=== PATIENT | female | born 1960 | race Caucasian/White ===

== ENCOUNTER 2017-03-22 17:07 | Emergency (ER) | payer BC, OTHER ==
[2017-03-22 18:21] LABS: #Basophils 0.1 thou/uL (0.0-0.2); #Eosinphils 0.2 thou/uL (0.0-0.7); #Lymphocytes 3.1 thou/uL (1.20-3.40); #Monocytes 0.7 thou/uL (0.11-0.59); #Neutrophils 7.2 thou/uL (1.40-6.50); %Eosinophils 1.4 % (0.0-10.0); %Lymphocytes 27.5 % (21.0-51.0); %Monocytes 5.8 % (0.0-10.0); Hematocrit 47.1 % (36.0-47.0); Mean Platelet Volume 6.9 fL (7.4-10.4); Red Blood Cell (RBC) Count 4.85 mill/uL (4.20-5.40); White Blood Cell (WBC) Count 11.1 thou/uL (4.8-10.8)
[2017-03-22 18:43] LABS: Acetaminophen Less than 6.0 mcg/mL (10.0-30.0); Salicylate Less than 8.0 mg/dL (15.0-30.0)
[2017-03-22 18:44] LABS: ALT (SGPT) 20 U/L (8-55); AST (SGOT) 16 U/L (5-34); Alkaline Phosphatase 101 U/L (40-150); Anion Gap 14 mmol/L (10-20); BUN (Urea Nitrogen) 22 mg/dL (9.8-20.1); Bilirubin, Total 0.7 mg/dL (0.2-1.2); CK (CPK) 34 U/L (29-168); Calc. Creatinine Clearance 0 mL/min (70-130); Calcium 9.5 mg/dL (7.8-10.44); Carbon Dioxide 23 mmol/L (22-29); Chloride 103 mmol/L (98-107); Estimated GFR-MDRD 54; Globulin 3.1 g/dL (2.4-3.5); Protein, Total 7.3 g/dL (6.0-8.3)
[2017-03-22 19:01] LABS: Bilirubin Small (Negative); Blood, Urine Negative (Negative); Glucose, Urine (Dipstick) Negative (Negative); Ketone, Urine Negative (Negative); Nitrite Negative (Negative); Protein, Urine (Dipstick) Trace mg/dL (Neg-Trace)
[2017-03-22 19:04] LABS: Bacteria/HPF None Seen HPF (None Seen); Hyaline Casts/LPF 4-6 HYALINE CAST LPF (0-3 Hyaline); RBC/HPF 0-3 HPF (0-3); WBC/HPF 0-3 HPF (0-3)
[2017-03-22 19:10] LABS: Amphetamine Not Detected (NotDetected); Methadone Not Detected (NotDetected); Methamphetamine Not Detected (NotDetected)
[2017-03-23] MEDS ORDERED: Ibuprofen 200 MG TAB ONE ×2 (00:45→07:33)
== END 2017-03-23 08:52 ==
LOC: ERS 17:07
DX: F32.9 Major depressive disorder, single episode, unspecified (principal); I10 Essential (primary) hypertension; E11.9 Type 2 diabetes mellitus without complications; E78.5 Hyperlipidemia, unspecified; F17.210 Nicotine dependence, cigarettes, uncomplicated; Z79.899 Other long term (current) drug therapy
CPT/HCPCS: 36415; 80053; 80306; 80307; 81003; 81015; 82550; 84443; 85025; 96360; 96361; 99406

== ENCOUNTER 2018-06-01 20:59 | Emergency (ER) | payer BC, OTHER ==
[~2018-06-01 20:59] MED LIST: ISOVUE-370 76%-LOCM 1 ML ONE
[2018-06-01] MEDS ORDERED: Ondansetron PF 4 MG/2 ML Vial ONE (21:53)
[2018-06-01] MEDS ORDERED: Fentanyl 100 MCG/2 ML VIAL ONE (21:53)
[2018-06-01 22:09] LABS: #Basophils 0.1 thou/uL (0.0-0.2); #Eosinphils 0.2 thou/uL (0.0-0.7); #Lymphocytes 2.8 thou/uL (1.20-3.40); #Monocytes 0.6 thou/uL (0.11-0.59); #Neutrophils 7.9 thou/uL (1.40-6.50); %Eosinophils 1.9 % (0.0-10.0); %Lymphocytes 23.7 % (21.0-51.0); %Monocytes 5.4 % (0.0-10.0); Hemoglobin 14.8 g/dL (12.0-16.0); Mean Corpuscular HGB CONC 31.4 g/dL (32.0-36.0); Mean Corpuscular Hemoglobin 30.8 pg (27.0-31.0); Mean Corpuscular Volume 97.9 fL (78.0-98.0); Mean Platelet Volume 7.4 fL (7.4-10.4); Platelet Count 280 thou/uL (130-400); RBC Distribution Width 12.2 % (11.5-14.5); White Blood Cell (WBC) Count 11.6 thou/uL (4.8-10.8)
[2018-06-01 22:51] LABS: ALT (SGPT) 21 U/L (8-55); AST (SGOT) 29 U/L (5-34); Albumin 4.3 g/dL (3.5-5.0); Alkaline Phosphatase 104 U/L (40-150); Anion Gap 15 mmol/L (10-20); BUN (Urea Nitrogen) 16 mg/dL (9.8-20.1); Bilirubin, Total 0.4 mg/dL (0.2-1.2); Calc. Creatinine Clearance 0 mL/min (70-130); Calcium 9.9 mg/dL (7.8-10.44); Carbon Dioxide 28 mmol/L (22-29); Chloride 101 mmol/L (98-107); Estimated GFR-MDRD 57; Globulin 3.6 g/dL (2.4-3.5); Glucose 149 mg/dL (70-105); Lipase 19 U/L (8-78); Potassium 4.8 mmol/L (3.5-5.1); Protein, Total 7.9 g/dL (6.0-8.3); Sodium 139 mmol/L (136-145)
[2018-06-01 22:59] LABS: Bilirubin Small (Negative); Blood, Urine Negative (Negative); Clarity CLOUDY (Clear); Glucose, Urine (Dipstick) Negative (Negative); Leukocyte Negative (Negative); Nitrite Negative (Negative); Protein, Urine (Dipstick) 30 mg/dL (Neg-Trace); Specific Gravity, Urine 1.036 (1.002-1.036); pH, Urine 5.5 (5.0-9.0)
[2018-06-01 23:00] LABS: Bacteria/HPF 1+ HPF (None Seen); Pathc Cast-AUWi Flag 1.45 (0-2.49)
[2018-06-01 23:11] LABS: Crystals/HPF 4+ CA OXALATE HPF (Negative); Hyaline Casts/LPF 0-3 HYALINE CAST LPF (0-3 Hyaline)
--- NOTE | 2018-06-01 23:30 | CT ---
CONTRAST ENHANCED CT IMAGES ABDOMEN AND PELVIS 06/01/18 HISTORY: Abdominal pain. Comparison made to previous CT from 05/19/16. The lung bases are unremarkable. Three intraperitoneal fluid seen on the patient's previous CT has resolved. No evidence of free intra peritoneal air or fluid seen at this time. The liver and spleen are unremarkable. The gallbladder has been surgically removed. The pancreas is unremarkable. Adrenal glands and kidneys are unremarkable. Small cortical cyst seen i n the lower pole of the left kidney. No evidence of periaortic lymphadenopathy seen. A normal appendix is visualized. The proximal colon is unremarkable. The descending colon and sigmoid colon contains areas of surrounding pericolonic edema concerning for possible diverticulitis or colitis. Numerous sigmoid colonic diverticula are also present. No defini te evidence of abscess seen. IMPRESSION: Descending and sigmoid colonic diverticulosis and surrounding inflammatory change concerning for dive rticulitis. POS: [facility]
[2018-06-02] MEDS ORDERED: metroNIDAZOLE 250 MG TAB ONE (00:11)
== END 2018-06-02 00:30 | disposition home or self-care (01) ==
LOC: ERS 20:59
DX: K57.32 Diverticulitis of large intestine without perforation or abscess without bleeding (principal); E78.5 Hyperlipidemia, unspecified; I25.2 Old myocardial infarction; E11.9 Type 2 diabetes mellitus without complications; F32.9 Major depressive disorder, single episode, unspecified; F17.210 Nicotine dependence, cigarettes, uncomplicated; Z79.899 Other long term (current) drug therapy
CPT/HCPCS: 74177; 80053; 81003; 81015; 82010; 83690; 85025; 87086; 96361; 96372; 96374; 96375; J0500; J2405; J3010; Q9966

== ENCOUNTER 2018-06-08 14:54 | Emergency (ER) | payer OTHER ==
[~2018-06-08 14:54] MED LIST changes: +Iopamidol 370 76% 50 ML VIAL FS ONE
[2018-06-08 17:23] LABS: Bilirubin Small (Negative); Blood, Urine Negative (Negative); Clarity CLOUDY (Clear); Glucose, Urine (Dipstick) Negative (Negative); Leukocyte Trace (Negative); Nitrite Negative (Negative); Protein, Urine (Dipstick) Trace mg/dL (Neg-Trace); Specific Gravity, Urine 1.028 (1.002-1.036); Urobilinogen 0.2 mg/dL (0.2-1.0); pH, Urine 5.5 (5.0-9.0)
[2018-06-08 17:24] LABS: ALT (SGPT) 35 U/L (8-55); AST (SGOT) 33 U/L (5-34); Albumin 4.3 g/dL (3.5-5.0); Alkaline Phosphatase 106 U/L (40-150); Anion Gap 14 mmol/L (10-20); BUN (Urea Nitrogen) 17 mg/dL (9.8-20.1); Bilirubin, Total 0.5 mg/dL (0.2-1.2); Calc. Creatinine Clearance 0 mL/min (70-130); Calcium 9.8 mg/dL (7.8-10.44); Carbon Dioxide 26 mmol/L (22-29); Chloride 101 mmol/L (98-107); Estimated GFR-MDRD 56; Glucose 147 mg/dL (70-105); Lipase 16 U/L (8-78); Potassium 4.1 mmol/L (3.5-5.1); Protein, Total 7.3 g/dL (6.0-8.3); Sodium 137 mmol/L (136-145)
[2018-06-08 17:26] LABS: Bacteria/HPF None Seen HPF (None Seen)
[2018-06-08 17:29] LABS: Manual Microscopic Reviewed? No Path Casts Seen; Pathc Cast-AUWi Flag 3.63 (0-2.49)
[2018-06-08 17:45] LABS: Hyaline Casts/LPF 0-3 HYALINE CAST LPF (0-3 Hyaline)
[2018-06-08 18:02] LABS: #Basophils 0.1 thou/uL (0.0-0.2); #Eosinphils 0.1 thou/uL (0.0-0.7); #Lymphocytes 2.7 thou/uL (1.20-3.40); #Monocytes 0.6 thou/uL (0.11-0.59); %Basophils 0.8 % (0.0-1.0); %Eosinophils 0.8 % (0.0-10.0); %Lymphocytes 23.2 % (21.0-51.0); %Monocytes 5.4 % (0.0-10.0); %Neutrophils 69.7 % (42.0-75.0); Hemoglobin 14.7 g/dL (12.0-16.0); Mean Corpuscular HGB CONC 33.2 g/dL (32.0-36.0); Mean Corpuscular Hemoglobin 32.4 pg (27.0-31.0); Mean Corpuscular Volume 97.4 fL (78.0-98.0); Mean Platelet Volume 6.9 fL (7.4-10.4); Platelet Count 254 thou/uL (130-400); RBC Distribution Width 12.2 % (11.5-14.5); Red Blood Cell (RBC) Count 4.55 mill/uL (4.20-5.40); White Blood Cell (WBC) Count 11.5 thou/uL (4.8-10.8)
[2018-06-08] MEDS ORDERED: Morphine 4 MG/ML VIAL ONE (18:02)
[2018-06-08] MEDS ORDERED: Ondansetron PF 4 MG/2 ML Vial ONE (18:02)
--- NOTE | 2018-06-08 20:25 | CT ---
CT ABDOMEN AND PELVIS WITH INTRAVENOUS CONTRAST: HISTORY: Abdominal pain. Bodyaches. History of diverticulitis. COMPARISON: 06/01/2018 FINDINGS: ABDOMEN: The lung bases show linear atelectasis or scar. The liver shows suggestion of some fatty change. The spleen is within normal limits in size. The pa ncreas is normal in appearance. The gallbladder has been removed. There is extrahepatic ductal prom inence, which is probably on the basis of the cholecystectomy. The right and left adrenal glands and the right and left kidneys are normal in size. No renal calcul i. No significant periaortic or mesenteric lymphadenopathy. PELVIS: There is some diverticulosis of the descending and sigmoid colon. The pericolonic inflammat ory change has improved. No abscess. There is a focus which appears to represent some fat necrosis incidentally seen in the deep left pelvis. Appendix is normal. IMPRESSION: Improving sigmoid diverticulitis. POS: [facility]
== END 2018-06-08 20:46 | disposition home or self-care (01) ==
LOC: ERS 14:54
DX: B34.9 Viral infection, unspecified (principal); I10 Essential (primary) hypertension; E78.5 Hyperlipidemia, unspecified; I25.2 Old myocardial infarction; E11.9 Type 2 diabetes mellitus without complications; F32.9 Major depressive disorder, single episode, unspecified; Z87.891 Personal history of nicotine dependence
CPT/HCPCS: 36415; 74177; 80053; 81003; 81015; 83690; 85025; 87040; 87804; 96374; 96375; J2270; J2405; Q9966; Q9967

== ENCOUNTER 2018-06-26 09:47 | Outpatient (CLI) | payer OTHER ==
--- NOTE | 2018-06-26 11:30 | RAD ---
TWO VIEWS EACH HIP: DATE: 06/26/2018. PROVIDED CLINICAL HISTORY: Pain. FINDINGS: There is no evidence for a fracture or other acute osseous abnormality. Alignment appears anatomic. Joint spaces appear preserved. No lytic or blastic lesions are seen. IMPRESSION: No evidence for an acute osseous abnormality or significant arthropathy. POS: [facility]
[2018-06-28 12:19] LABS: CCP IgG Antibody 0.7 EliAU/mL (<7 Negative); EliA RAS New Method **** NEW METHOD ****; Rheumatoid Factor IgA Antibody 6.7 IU/mL (<14 Negative); Rheumatoid Factor IgM Antibody Less than 0.5 IU/mL (<3.5 Negative)
[2018-06-29 15:23] LABS: Cytoplasmic (C-ANCA) <1:20 titer (Neg:<1:20); Perinuclear (P-ANCA) <1:20 titer (Neg:<1:20)
== END 2018-06-26 09:48 | disposition home or self-care (01) ==
LOC: SCSRAD 09:47
PROVIDERS: ATTEND Psychiatry & Neurology Neurology
DX: R41.3 Other amnesia (principal)
CPT/HCPCS: 36415; 73521; 83520; 85652; 86200; 86256

== ENCOUNTER 2018-07-13 19:32 | Emergency (ER) | payer OTHER ==
[2018-07-13] MEDS ORDERED: Ketorolac Tromethamine 30 MG/ML VIAL ONE (20:51)
--- NOTE | 2018-07-13 22:15 | CT ---
CT PELVIS WITHOUT CONTRAST: 07/13/18 HISTORY: Hip pain and groin pain. COMPARISON: Hip radiographs from 06/26/18. FINDINGS: There is an area of fat necrosis within the cul-de-sac. Moderate diverticular disease of the sigmoid colon. No evidence of acute inflammation. No free fluid in the pelvis. No pelvic sidewall hematoma. The lower lumbar spine reveals circumferential disc bulges at L4-5 and L 5-S1 with likely a component of neural foraminal narrowing. No fracture of the sacrum. The pubic symp hysis is normal. The SI joints are normal. Obturator rings are intact. Femurs are intact. No significant muscle atrophy. Mild enthesopathic padilla ges of the gluteus medius muscles bilaterally on the greater trochanters. IMPRESSION: 1. No acute abnormality. 2. Likely degenerative disc space disease at L4-5 and L5-S1. 3. No mass is seen along the expected locations of the sciatic nerves. POS: [facility]
== END 2018-07-13 21:31 | disposition home or self-care (01) ==
LOC: ERS 19:32
DX: M25.551 Pain in right hip (principal); I10 Essential (primary) hypertension; E78.5 Hyperlipidemia, unspecified; I25.2 Old myocardial infarction; E11.9 Type 2 diabetes mellitus without complications; F32.9 Major depressive disorder, single episode, unspecified; Z87.891 Personal history of nicotine dependence
CPT/HCPCS: 72192; 96372; J1885

== ENCOUNTER 2018-12-23 16:20 | Emergency (ER) | payer OTHER ==
[~2018-12-23 16:20] MED LIST changes: -Iopamidol 370 76% 50 ML VIAL FS ONE
[2018-12-23 18:55] LABS: #Basophils 0.1 thou/uL (0.0-0.2); #Eosinphils 0.2 thou/uL (0.0-0.7); #Monocytes 0.7 thou/uL (0.11-0.59); #Neutrophils 7.2 thou/uL (1.40-6.50); %Basophils 0.7 % (0.0-1.0); %Eosinophils 1.4 % (0.0-10.0); %Lymphocytes 26.7 % (21.0-51.0); %Monocytes 6.4 % (0.0-10.0); %Neutrophils 64.7 % (42.0-75.0); Hemoglobin 14.2 g/dL (12.0-16.0); Mean Corpuscular HGB CONC 33.9 g/dL (32.0-36.0); Mean Corpuscular Hemoglobin 32.8 pg (27.0-31.0); Mean Corpuscular Volume 96.8 fL (78.0-98.0); Mean Platelet Volume 7.2 fL (7.4-10.4); Platelet Count 228 thou/uL (130-400); RBC Distribution Width 11.9 % (11.5-14.5); Red Blood Cell (RBC) Count 4.32 mill/uL (4.20-5.40); White Blood Cell (WBC) Count 11.1 thou/uL (4.8-10.8)
[2018-12-23] MEDS ORDERED: Ondansetron ODT 4 MG TAB ONE (19:06)
[2018-12-23 19:17] LABS: ALT (SGPT) 18 U/L (8-55); AST (SGOT) 12 U/L (5-34); Albumin 4.1 g/dL (3.5-5.0); Alkaline Phosphatase 138 U/L (40-150); Anion Gap 12 mmol/L (10-20); BUN (Urea Nitrogen) 18 mg/dL (9.8-20.1); Bilirubin, Total 0.2 mg/dL (0.2-1.2); Calc. Creatinine Clearance 0 mL/min (70-130); Carbon Dioxide 27 mmol/L (22-29); Chloride 101 mmol/L (98-107); Estimated GFR-MDRD 61; Globulin 2.6 g/dL (2.4-3.5); Glucose 100 mg/dL (70-105); Lipase 41 U/L (8-78); Potassium 3.6 mmol/L (3.5-5.1); Protein, Total 6.7 g/dL (6.0-8.3); Sodium 136 mmol/L (136-145)
[2018-12-23] MEDS ORDERED: Ondansetron PF 4 MG/2 ML Vial ONE (19:26)
[2018-12-23] MEDS ORDERED: Morphine 4 MG/ML VIAL ONE (19:27)
--- NOTE | 2018-12-23 20:27 | CT ---
CT ABDOMEN AND PELVIS WITH IV CONTRAST: 12/23/18 HISTORY: Abdominal pain, diarrhea. FINDINGS: Comparison made with exam of 06/08/16. There are dependent changes in the lung bases. The patient is p ost cholecystectomy. The liver, spleen, pancreas, adrenal glands, and kidneys are normal. No free air , free fluid, or lymphadenopathy is seen in the abdomen or pelvis. The patient is post hysterectomy. A normal appearing appendix is seen. The small bowel loops are not abnormally dilated. There is colon ic diverticulosis without diverticulitis. No abnormally loculated fluid collection is seen to suggest abscess formation. There are vascular calcifications without evidence of aneurysmal dilatation of the abdominal aorta. T here are degenerative changes in the spine. IMPRESSION: No acute process. POS: [facility]
== END 2018-12-23 21:10 | disposition home or self-care (01) ==
LOC: ERS 16:20
DX: R10.9 Unspecified abdominal pain (principal); R19.7 Diarrhea, unspecified; I10 Essential (primary) hypertension; E78.5 Hyperlipidemia, unspecified; I25.2 Old myocardial infarction; E11.9 Type 2 diabetes mellitus without complications; F41.9 Anxiety disorder, unspecified; F31.9 Bipolar disorder, unspecified; F17.210 Nicotine dependence, cigarettes, uncomplicated; Z79.899 Other long term (current) drug therapy
CPT/HCPCS: 36415; 74177; 80053; 82274; 82550; 83690; 84484; 85025; 93005; 96361; 96374; 96375; J2270; J2405; Q0162; Q9966

== ENCOUNTER 2020-02-10 06:24 | Emergency (ER) | payer OTHER ==
--- NOTE | 2020-02-10 11:24 | RAD ---
LEFT KNEE RADIOGRAPHS 4 VIEWS: DATE: 02/10/2020. PROVIDED CLINICAL HISTORY: I Pain status post injury. FINDINGS: There is no evidence for a fracture or other acute osseous abnormality. If there is persistent clini almaz concern, conservative management and followup imaging are advised. IMPRESSION: As above. POS: [facility]
== END 2020-02-10 08:01 | disposition home or self-care (01) ==
LOC: ERS 06:24
DX: S80.02XA Contusion of left knee, initial encounter (principal); S80.211A Abrasion, right knee, initial encounter; E78.5 Hyperlipidemia, unspecified; I25.2 Old myocardial infarction; E11.9 Type 2 diabetes mellitus without complications; F17.210 Nicotine dependence, cigarettes, uncomplicated; F31.9 Bipolar disorder, unspecified; F41.9 Anxiety disorder, unspecified; Z79.899 Other long term (current) drug therapy; W18.30XA Fall on same level, unspecified, initial encounter

== ENCOUNTER 2020-05-06 11:43 | Observation (INO) | payer OTHER, SELFPAY ==
--- NOTE | 2020-05-06 13:29 | RAD ---
XR Chest 1 View Portable History: Chest pain Comparison: Radiograph 2017 Findings: Mild lung hypoinflation. No confluent airspace consolidation, pneumothorax or effusion. Mil d fullness of the pulmonary arteries and mild pulmonary venous congestion. Impression: Mild pulmonary venous congestion/early pulmonary edema. No confluent airspace consolidati on.
[2020-05-06 13:58] LABS: #Basophils 0.1 thou/uL (0.0-0.2); #Eosinphils 0.2 thou/uL (0.0-0.7); #Monocytes 0.8 thou/uL (0.11-0.59); #Neutrophils 11.6 thou/uL (1.40-6.50); %Basophils 0.6 % (0.0-1.0); %Eosinophils 1.7 % (0.0-10.0); %Lymphocytes 13.3 % (21.0-51.0); %Monocytes 5.7 % (0.0-10.0); %Neutrophils 78.7 % (42.0-75.0); Hemoglobin 12.8 g/dL (12.0-16.0); Mean Corpuscular Hemoglobin 32.5 pg (27.0-31.0); Mean Corpuscular Volume 95.6 fL (78.0-98.0); Mean Platelet Volume 7.3 fL (7.4-10.4); Platelet Count 186 thou/uL (130-400); RBC Distribution Width 11.4 % (11.5-14.5); Red Blood Cell (RBC) Count 3.95 mill/uL (4.20-5.40); White Blood Cell (WBC) Count 14.7 thou/uL (4.8-10.8)
[2020-05-06 14:18] LABS: ALT (SGPT) 11 U/L (8-55); AST (SGOT) 15 U/L (5-34); Albumin 3.8 g/dL (3.5-5.0); Alkaline Phosphatase 104 U/L (40-110); Anion Gap 13 mmol/L (10-20); BUN (Urea Nitrogen) 18 mg/dL (9.8-20.1); Bilirubin, Total 0.5 mg/dL (0.2-1.2); CK (CPK) 160 U/L (29-168); Calc. Creatinine Clearance 0 mL/min (70-130); Calcium 8.8 mg/dL (7.8-10.44); Carbon Dioxide 30 mmol/L (22-29); Chloride 99 mmol/L (98-107); Globulin 2.5 g/dL (2.4-3.5); Glucose 136 mg/dL (70-105); Potassium 4.5 mmol/L (3.5-5.1); Protein, Total 6.3 g/dL (6.0-8.3); Sodium 137 mmol/L (136-145)
--- NOTE | 2020-05-06 15:42 | PDOC.FPRHP ---
- History of Present Illness Chief Complaint: Chest Pain History of Present Illness: Patient is a 59 year old female with hx of TN 10 years ago s/p stent x [address] Perez, HTN, HLD, DM2 who presents to the ED with complains of left sided, sternal, constant CP since last night. Possible radiation to left armpit. Guillermo p/stabbing. Worse with inspiration, movement and cough. Associated symptoms include nausea, diaphoresis, chills, and productive cough x 1 week. States that it feels like her last TN. Patient endorses significant stress due to home situation with daughter and daughter's fiance. Son is incarcerated. Unemployed. Patient endorses subjective agoraphobia. States she checked BP at home - with SBP of 180 max over the past 1 week. 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 Arreola (Last Seen in 2018) with last stress test > 1Y Prior, remotely Dr. Perez (Last Seen in 2019) ED Course: In the ED, patient noted to be anxious and given xanax 0.25mg. Given ASA prior to arrival. Refused nitro in ED. - Allergies/Adverse Reactions Allergies Allergy/AdvReac Type Severity Reaction Status Date / Time No Known Allergies Allergy Verified 05/06/20 20:58 - Home Medications Medication Instructions Recorded Confirmed Type ALPRAZolam [Xanax] 0.5 mg PO DAILY PRN 05/18/16 05/06/20 History Lisinopril 20 mg PO DAILY 05/18/16 05/06/20 History Zolpidem Tartrate [Ambien] 10 mg PO HS 05/18/16 05/06/20 History Acetaminophen With Codeine 1 tab PO PRN PRN #20 tablet 05/23/16 05/06/20 Rx [Tylenol with Codeine #4] Amlodipine [Norvasc] 5 mg PO DAILY #30 tab 05/23/16 05/06/20 Rx traMADol HCl [Ultram] 100 mg PO Q6H PRN #10 tab 05/23/16 05/06/20 Rx traZODone HCl [Desyrel] 100 mg PO HS tab 05/23/16 05/06/20 Rx Atorvastatin Calcium 80 mg PO AC 05/06/20 05/06/20 History FLUoxetine HCl [Fluoxetine HCl] 40 mg PO AC 05/06/20 05/06/20 History Lisdexamfetamine Dimesylate 70 mg PO AC 05/06/20 05/06/20 History [Vyvanse] Propranolol [Inderal] 10 mg PO BID 05/06/20 05/06/20 History - History PMH: TN, DM2, Chronic Pain, Anxiety, HTN, HLD Allergies: NKDA Surgery: Cholecystectomy, Shoulder Surgery, Leg Surgery FHx: Dather (CAD) Mother (Glioblastoma) Social: Remote Tobacco Abuse since Teenage Years, Social EtOH, Denies Illicit Drug Use. - Review of Systems General: reports: fever/chills, fatigue Eyes: reports: vision changes. denies: eye pain ENT: denies: nasal congestion, rhinorrhea Respiratory: reports: cough. denies: congestion, shortness of breath Cardiovascular: reports: chest pain. denies: palpitation, edema Gastrointestinal: reports: other (fecal incontinence x 1 month). denies: nausea, vomiting, diarrhea, abdominal pain Genitourinary: reports: incontinence (x 1 month). denies: dysuria, polyuria Skin: denies: jaundice, itching Musculoskeletal: reports: pain (chronic, generalized). denies: stiffness Neurological: reports: weakness (right leg with "shaking" during ambulation). denies: numbness, syncope Psychological: reports: anxiety (due to social stressor). denies: depression - Vital signs BP 123/50, HR 77, Resp 20, Temp 98, O2 sat 95% on RA, 63kg - Physical Exam Constitutional: NAD, awake, alert and oriented HEENT: normocephalic and atraumatic, PERRLA, EOMI, conjunctiva clear, MMM Neck: supple, FROM -Chest: Tender to palpation bilaterally, more on left Pain elicited with movement Heart: RRR, normal S1/S2, pulses present, no edema Lungs: CTAB, no respiratory distress, good air movement Abdomen: soft, non-tender, bowel sounds present Musculoskeletal: normal structure, ROM grossly normal Neurological: no focal deficit Skin: no rash/lesions, no jaundice Heme/Lymphatic: no unusual bruising or bleeding Psychiatric: normal mood and affect FMR H&P: Results - Labs Result Diagrams: 05/06/20 13:37 05/06/20 13:37 Lab results: WBC 14.7 thou/uL (4.8-10.8) H 05/06/20 13:37 Hgb 12.8 g/dL (12.0-16.0) 05/06/20 13:37 Hct 37.7 % (36.0-47.0) 05/06/20 13:37 MCV 95.6 fL (78.0-98.0) 05/06/20 13:37 Plt Count 186 thou/uL (130-400) 05/06/20 13:37 Neutrophils % 78.7 % (42.0-75.0) H 05/06/20 13:37 Sodium 137 mmol/L (136-145) 05/06/20 13:37 Potassium 4.5 mmol/L (3.5-5.1) 05/06/20 13:37 Chloride 99 mmol/L (98-107) 05/06/20 13:37 Carbon Dioxide 30 mmol/L (22-29) H 05/06/20 13:37 BUN 18 mg/dL (9.8-20.1) 05/06/20 13:37 Creatinine 0.82 mg/dL (0.6-1.1) 05/06/20 13:37 Glucose 136 mg/dL (70-105) H 05/06/20 13:37 Calcium 8.8 mg/dL (7.8-10.44) 05/06/20 13:37 Total Bilirubin 0.5 mg/dL (0.2-1.2) 05/06/20 13:37 AST 15 U/L (5-34) 05/06/20 13:37 ALT 11 U/L (8-55) 05/06/20 13:37 Alkaline Phosphatase 104 U/L (40-110) 05/06/20 13:37 Creatine Kinase 160 U/L (29-168) 05/06/20 13:37 B-Natriuretic Peptide 90.4 pg/mL (0-100) 05/06/20 13:37 Serum Total Protein 6.3 g/dL (6.0-8.3) 05/06/20 13:37 Albumin 3.8 g/dL (3.5-5.0) 05/06/20 13:37 - EKG Interpretation EKG: HR 75, NSR - Radiology Interpretation Chest x-ray Status: report reviewed by me Additional comment: mild pulmonary edema FMR H&P: A/P - Plan 59 year old female with hx of TN 10 years ago s/p stents, HTN, HLD, DM2 who presents with left sided chest pain Atypical chest pain, likely musculoskeletal in origin Has upper respiratory infection x 1 week likely contributing. Also reports anxiety with similar chest pain. EKG NSR, no ST segment. Trop < 0.01. D-dimer 0.43 -Admit to tele obs -HEART score 4. Will make NPO at midnight for stress test in am -Refused nitro in ED. Nitro PRN for chest pain -EKG PRN for chest pain -Risk stratifying labs recently completed in clinic. Obtain lipid panel in am -COVID test due to recent URI symptoms CAD Hx TN s/p stent x [address] Perez. 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 Arreola, at [facility] - last seen over 1 year ago -Hold BB for stress test. Otherwise, continue home meds HTN BP 120s systolic in ED. -Continue home meds HLD -Lipid panel in am -Continue home meds Chronic pain -Previously took Alprazolam, Zolpidem - not filled by [facility] -Tylenol PRN for pain Anixety -s/p Xanax 0.25mg in ED -Continue home meds PCP: ANA CRISTINA Carbajal Code: FULL DVT ppx: Lovenox 40 daily Dispo: Admit to tele obs, expected LOS < 48 hours FMR H&P: Upper Level - Plan Date/Time: 05/06/20 1382 I, [], have evaluated this patient and agree with findings/plan as outlined by customer experience intern resident. Pertinent changes/additions are listed here. Addendum - Attending - Attending Attestation Date/Time: 05/07/20 7623 I personally evaluated the patient and discussed the management with Dr. Cartagena/Lili. I agree with the History, Examination, Assessment and Plan documented above with any addition or exceptions noted below.
[2020-05-06] MEDS ORDERED: ALPRAZolam 0.25 MG TAB ONE (15:54)
[2020-05-06] MEDS ORDERED: Ondansetron ODT 4 MG TAB PO PRN (16:17)
[2020-05-06] MEDS ORDERED: Nitroglycerin 0.4 MG TAB (25 Tab Bottle) SL PRN (16:17)
[2020-05-06] MEDS ORDERED: Ondansetron PF 4 MG/2 ML Vial IVP PRN (16:17)
[2020-05-06 17:17] LABS: Troponin I Less than 0.010 ng/mL (< 0.028)
[2020-05-06 18:24] LABS: SARS-CoV-2 NAA Rapid Test Not Detected (NotDetected)
[2020-05-06 19:59] VITALS: BMI 36.8
[2020-05-06 20:37] LABS: Troponin I Less than 0.010 ng/mL (< 0.028)
[2020-05-06] MEDS: Acetaminophen 325 MG TAB PO PRN (20:47)
[2020-05-06] MEDS: Dicyclomine 20 MG TAB PO SCH (20:48)
[2020-05-06] MEDS ORDERED: Atorvastatin Calcium 40 MG TAB PO SCH (21:00)
[2020-05-07] MEDS: Acetaminophen 325 MG TAB PO PRN ×2 (03:15→08:43)
[2020-05-07 05:43] LABS: Cardiac Risk 5.6 (Less than 4.5); Cholesterol 201 mg/dl (< 200 Desired); HDL Cholesterol 36 mg/dL (>60 Neg Risk); Triglycerides 481 mg/dL (Less than 150)
--- NOTE | 2020-05-07 06:33 | PDOC.FM ---
- Subjective Subjective: Reports continued left sided chest pain worsened with deep breath and palpation, was not improved by nitro last pm. Notes that chest pain during her ME was resolved with nitro. Denies headache, vision changes, palpitation, SOB, nausea, abdominal pain and edema. - Objective MAR Reviewed: Yes Vital Signs & Weight: Vital Signs (12 hours) Temp Pulse Resp BP Pulse Ox 05/07/20 03:00 97.6 F 65 18 106/56 L 92 L 05/06/20 23:31 71 105/55 L 05/06/20 19:12 97.4 F L 69 16 109/62 95 Weight Weight 110 kg Result Diagrams: 05/06/20 13:37 05/06/20 13:37 Phys Exam - Physical Examination Constitutional: NAD HEENT: moist MMs, sclera anicteric Neck: full ROM Respiratory: clear to auscultation bilateral Cardiovascular: RRR, no significant murmur Gastrointestinal: soft, non-tender, positive bowel sounds Musculoskeletal: no edema Chest wall tender to palpation Neurological: moves all 4 limbs Psychiatric: normal affect, A&O x 3 Skin: no rash Dx/Plan - Plan Plan: 59 year old female with hx of ME 10 years ago s/p stents, HTN, HLD, DM2 who presents with left sided chest pain Atypical chest pain, likely musculoskeletal in origin Has upper respiratory infection x 1 week likely contributing. Also reports anxiety with similar chest pain. EKG NSR, no ST segment. Trop < 0.01. D-dimer 0.43 -Admit to tele obs -HEART score 4. Scheduled for stress test in am -Refused nitro in ED. Nitro PRN for chest pain - received x 1 overnight -EKG PRN for chest pain -Risk stratifying labs recently completed in clinic - elevated cholesterol, triglycerides -COVID test negative CAD Hx ME s/p stent x [address] Perez. Sports Team Marketing Intern, Dr. Arreola, at [facility] - last seen over 1 year ago -Hold BB for stress test. Otherwise, continue home meds HTN BP 100s/50s -Hold home meds this am HLD Cholesterol: 201, LDL too high to count, HLD 36, triglycerides 481 -Continue home atorvastatin 80 -Start ezetimide Chronic pain -Previously took Alprazolam, Zolpidem - not filled by [facility] -Tylenol PRN for pain Anixety -s/p Xanax 0.25mg in ED PCP: ANA CRISTINA Carbajal Code: FULL DVT ppx: Lovenox 40 daily Dispo: Home pending stress test Addendum - Attending - Attending Attestation Date/Time: 05/07/20 1111 I personally evaluated the patient and discussed the management with Dr. Cartagena. I agree with the History, Examination, Assessment and Plan documented above with any addition or exceptions noted below.
[2020-05-07] MEDS ORDERED: metFORMIN 500 MG TAB PO SCH (08:00)
[2020-05-07] MEDS ORDERED: Enoxaparin Sodium 40 MG/0.4 ML SYRINGE SC SCH (09:00)
[2020-05-07] MEDS ORDERED: Ezetimibe 10 MG TAB PO SCH (09:00)
[2020-05-07] MEDS ORDERED: Lisinopril 20 MG TAB PO SCH (09:00)
[2020-05-07] MEDS ORDERED: Amlodipine 5 MG TAB PO SCH (09:00)
[2020-05-07] MEDS ORDERED: ALPRAZolam 0.5 MG TAB PO SCH ×2 (11:45→21:00)
[2020-05-07 11:53] VITALS: BP 122/67; TEMP 97.9
--- NOTE | 2020-05-07 11:54 | NM ---
Radionucleotide stress only myocardial perfusion scan with CT attenuation correction and SPECT imagin g Left ventricular wall motion evaluation and ejection fraction HISTORY: Chest pain. FINDINGS: Adenosine protocol. Homogeneous uptake of radiotracer throughout the left ventricular myoca rdium. No focal perfusion defect or reversibility. QGS analysis of gated SPECT images shows no focal wall motion abnormality. Ejection fraction calculat ed at 72%. IMPRESSION : No evidence of ischemia. Normal LVEF.
[2020-05-07] MEDS: Dicyclomine 20 MG TAB PO SCH ×2 (11:57)
--- NOTE | 2020-05-08 11:48 | DIS ---
DATE OF ADMISSION: 05/06/2020 DATE OF DISCHARGE: 05/07/2020 RESIDENT: Alma Cartagena MD. ADMITTING ATTENDING: Bridger Riley MD. DISCHARGE ATTENDING: Bridger Riley MD. CONSULTS: None. PROCEDURES: Stress test completed on 05/07/2020 showed ejection fraction of an estimated 72% without evidence of ischemia. PRIMARY DIAGNOSIS: Costochondritis. SECONDARY DIAGNOSES: 1. Coronary artery disease. 2. History of myocardial infarction, status post stent x3. 3. Hypertension. 4. Hyperlipidemia. 5. Chronic pain. 6. Anxiety. DISCHARGE MEDICATIONS: 1. Zolpidem tartrate 10 mg p.o. at bedtime. 2. Atorvastatin 80 mg p.o. before meals. 3. Fluoxetine 40 mg p.o. before meals. 4. Propranolol 10 mg p.o. b.i.d. 5. Lisinopril 20 mg p.o. daily. 6. Vyvanse 70 mg p.o. before meals. 7. Xanax 0.5 mg p.o. daily p.r.n. 8. Bentyl 20 mg p.o. q.i.d. 9. Metformin 1000 mg p.o. b.i.d. with meals. 10. Amlodipine 5 mg p.o. daily. 11. Acetaminophen with codeine #4 one tablet p.o. p.r.n. 12. Ezetimibe 10 mg p.o. daily. DISCONTINUED MEDICATIONS: None. HISTORY OF PRESENT ILLNESS: The patient is a 59-year-old female with a history of CAD and SC 10 years ago status post stent x3, who presented to the ED on 05/06/2020 with reports of left-sided chest pain worsening with deep breaths and palpitation. For the past 1 day, the patient had experienced upper respiratory infection for the past one week. HEART score of 4. The patient was admitted to [facility] obs. Troponin was trended x3 and remained negative. EKG showed normal sinus rhythm without ST-segment changes. Risk stratifying labs were completed and revealed elevated cholesterol at 201, LDL too high to count, HDL 36, and triglycerides 481. The patient was started on ezetimibe 10mg daily. She underwent stress test on 05/07/2020, which revealed no evidence of ischemia with a normal LVEF calculated at 72%. The patient was deemed stable for discharge home on 05/07/20. She will follow up with her PCP, Dr. Carbajal at [facility] within 1 week. DISPOSITION: Stable. DISCHARGE INSTRUCTIONS: 1. Location: Home. 2. Diet: Heart healthy consistent carb. 3. Activity: As tolerated. 4. Follow up with Dr. Carbajal at [facility] within 1 week. The patient will also follow up with her Golf Instructor at [facility] within 1 week. Job ID: [id number] [facility]
--- NOTE | 2020-05-10 14:01 | EKG ---
Test Reason : CP Blood Pressure : / mmHG Vent. Rate : 075 BPM Atrial Rate : 075 BPM P-R Int : 126 ms QRS Dur : 076 ms QT Int : 396 ms P-R-T Axes : 012 011 043 degrees QTc Int : 442 ms Normal sinus rhythm Confirmed by KAYLA KIMBALL DO ([id number]), metropolitan editor RAFA CUENCA ([id number]) on 05/10/2020 2:00:51 PM Referred By: Confirmed By:KAYLA KIMBALL DO
== END 2020-05-07 14:15 | disposition home or self-care (01) ==
LOC: ERS 11:43 → 2NO 15:32
PROVIDERS: ADMIT Student in an Organized Health Care Education/Training Program; ATTEND Student in an Organized Health Care Education/Training Program
DX: R07.89 Other chest pain (principal); I25.10 Atherosclerotic heart disease of native coronary artery without angina pectoris; I25.2 Old myocardial infarction; I10 Essential (primary) hypertension; E78.5 Hyperlipidemia, unspecified; G89.29 Other chronic pain; F41.9 Anxiety disorder, unspecified; E11.9 Type 2 diabetes mellitus without complications; L40.9 Psoriasis, unspecified; Z87.891 Personal history of nicotine dependence; Z79.84 Long term (current) use of oral hypoglycemic drugs; Z79.899 Other long term (current) drug therapy; Z95.5 Presence of coronary angioplasty implant and graft; Z20.822 Contact with and (suspected) exposure to COVID-19
CPT/HCPCS: 0240U; 36415; 71045; 78452; 80053; 80061; 82550; 83880; 84484; 85025; 85379; 93005; 93017; 94760; A9500; G0378; J0153; J1650

== ENCOUNTER 2020-05-27 13:03 | Outpatient (CLI) | payer OTHER ==
--- NOTE | 2020-05-27 13:38 | MMO ---
Bilateral MAMMO Bilat Screen [facility]. CLINICAL HISTORY: Patient is 59 years old and is seen for screening. The patient has the following family history of breast cancer: maternal aunt, at age 60, malignant (generic). The patient has no personal history of cancer. VIEWS: The views performed were: bilateral craniocaudal with tomosynthesis and bilateral mediolateral oblique with tomosynthesis. FILMS COMPARED: The present examination has been compared to prior imaging studies performed at [facility] on 09/26/2009, and at [facility] [place] on 06/13/2001 and 08/31/2002. This study has been interpreted with the assistance of computer-aided detection. MAMMOGRAM FINDINGS: There are scattered fibroglandular densities. Finding 1: There are stable benign appearing densities seen in both breasts. Finding 2: There are stable benign appearing calcifications seen in both breasts. There are no suspicious masses, suspicious calcifications, or new areas of architectural distortion. IMPRESSION: THERE IS NO MAMMOGRAPHIC EVIDENCE OF MALIGNANCY. A ROUTINE FOLLOW-UP MAMMOGRAM IN 1 YEAR IS RECOMMENDED. THE RESULTS OF THIS EXAM WERE SENT TO THE PATIENT. ACR BI-RADS Category 2 - Benign finding MAMMOGRAPHY NOTE: 1. A negative mammogram report should not delay a biopsy if a dominant of clinically suspicious mass is present. 2. Approximately 10% to 15% of breast cancers are not detected by mammography. 3. Adenosis and dense breasts may obscure an underlying neoplasm. Reported by: TREVER MCCLURE MD Electonically Signed: [id number]
== END 2020-05-27 13:04 | disposition home or self-care (01) ==
LOC: BICMAMMO 13:03
PROVIDERS: ATTEND Family Medicine
DX: Z12.31 Encounter for screening mammogram for malignant neoplasm of breast (principal); Z80.3 Family history of malignant neoplasm of breast
CPT/HCPCS: 77063; 77067

== ENCOUNTER 2020-07-22 15:45 | Emergency (ER) | payer SELFPAY | END 2020-07-22 16:42 | disposition left against medical advice (07) | LOC: ERS 15:45 | DX: Z53.21 Procedure and treatment not carried out due to patient leaving prior to being seen by health care provider (principal) ==

== ENCOUNTER 2020-08-23 05:45 | Emergency (ER) | payer OTHER, SELFPAY ==
[2020-08-23] MEDS ORDERED: Ketorolac Tromethamine 30 MG/ML VIAL ONE (07:26)
== END 2020-08-23 13:20 | disposition home or self-care (01) ==
LOC: ERS 05:45
DX: S40.812A Abrasion of left upper arm, initial encounter (principal); S60.812A Abrasion of left wrist, initial encounter; S00.01XA Abrasion of scalp, initial encounter; I10 Essential (primary) hypertension; E78.00 Pure hypercholesterolemia, unspecified; I25.2 Old myocardial infarction; Z79.899 Other long term (current) drug therapy; W01.10XA Fall on same level from slipping, tripping and stumbling with subsequent striking against unspecified object, initial encounter
CPT/HCPCS: 71045; 96372; J1885

== ENCOUNTER 2020-09-24 17:17 | Emergency (ER) | payer SELFPAY ==
[~2020-09-24 17:17] MED LIST changes: -ISOVUE-370 76%-LOCM 1 ML ONE; +Iopamidol-370 76% 500 ML 1 ML ONE
[2020-09-24] MEDS ORDERED: Ketorolac Tromethamine 30 MG/ML VIAL ONE (18:08)
[2020-09-24 18:31] LABS: #Basophils 0.1 thou/uL (0.0-0.2); #Eosinphils 0.1 thou/uL (0.0-0.7); #Lymphocytes 2.4 thou/uL (1.20-3.40); #Monocytes 0.9 thou/uL (0.11-0.59); #Neutrophils 7.4 thou/uL (1.40-6.50); %Basophils 0.8 % (0.0-1.0); %Eosinophils 0.9 % (0.0-10.0); %Lymphocytes 22.1 % (21.0-51.0); %Monocytes 8.4 % (0.0-10.0); %Neutrophils 67.7 % (42.0-75.0); Hemoglobin 14.4 g/dL (12.0-16.0); Mean Corpuscular HGB CONC 32.8 g/dL (32.0-36.0); Mean Corpuscular Hemoglobin 31.9 pg (27.0-31.0); Mean Corpuscular Volume 97.4 fL (78.0-98.0); Mean Platelet Volume 7.6 fL (7.4-10.4); Platelet Count 212 thou/uL (130-400); RBC Distribution Width 11.7 % (11.5-14.5); Red Blood Cell (RBC) Count 4.49 mill/uL (4.20-5.40); White Blood Cell (WBC) Count 10.9 thou/uL (4.8-10.8)
[2020-09-24 18:54] LABS: Acetaminophen Less than 6.0 mcg/mL (10.0-30.0); Alcohol Less than 10 mg/dL (Less than 10); Salicylate Less than 8.0 mg/dL (15.0-30.0)
[2020-09-24 19:02] LABS: ALT (SGPT) 24 U/L (8-55); AST (SGOT) 28 U/L (5-34); Albumin 4.3 g/dL (3.5-5.0); Alkaline Phosphatase 126 U/L (40-110); Anion Gap 17 mmol/L (10-20); BUN (Urea Nitrogen) 14 mg/dL (9.8-20.1); Bilirubin, Total 0.8 mg/dL (0.2-1.2); CK (CPK) 247 U/L (29-168); Calc. Creatinine Clearance 0 mL/min (70-130); Calcium 9.3 mg/dL (7.8-10.44); Carbon Dioxide 26 mmol/L (22-29); Chloride 103 mmol/L (98-107); Glucose 147 mg/dL (70-105); Lipase 11 U/L (8-78); Potassium 4.2 mmol/L (3.5-5.1); Protein, Total 7.3 g/dL (6.0-8.3); Sodium 142 mmol/L (136-145)
[2020-09-24] MEDS ORDERED: Morphine 4 MG/ML VIAL ONE (19:50)
[2020-09-24 21:46] LABS: Bacteria/HPF None Seen HPF (None Seen); Bilirubin Negative (Negative); Blood, Urine Negative (Negative); Clarity Clear (Clear); Glucose, Urine (Dipstick) Normal (Negative); Ketone, Urine Negative (Negative); Leukocyte Negative Leu/uL (Negative); Mucous/LPF Rare LPF (<2+); Nitrite Negative (Negative); Protein, Urine (Dipstick) 30 mg/dL (Neg-Trace); RBC/HPF 0-3 HPF (0-3); Specific Gravity, Urine 1.027 (1.002-1.036); Squamous Epithelial 0-3 HPF (0-3); WBC/HPF 0-3 HPF (0-3)
[2020-09-24 21:48] LABS: Amphetamine Not Detected (NotDetected); Barbiturates Screen Not Detected (NotDetected); Benzodiazepine Screen Detected (NotDetected); Cocaine Metabolite Screen Not Detected (NotDetected); Medtox Control Line Valid? VALID (VALID); Medtox Reader # READER 4; Methadone Not Detected (NotDetected); Methamphetamine Not Detected (NotDetected); Opiate Screen Detected (NotDetected); Oxycodone Screen Not Detected (NotDetected); Phencyclidine (PCP) Not Detected (NotDetected); THC/Cannabinoid Screen Detected (NotDetected); Tricyclic Screen Not Detected (NotDetected)
== END 2020-09-25 00:58 | disposition home or self-care (01) ==
LOC: ERS 17:17
DX: S82.62XA Displaced fracture of lateral malleolus of left fibula, initial encounter for closed fracture (principal); S20.219A Contusion of unspecified front wall of thorax, initial encounter; F19.10 Other psychoactive substance abuse, uncomplicated; I25.2 Old myocardial infarction; E78.00 Pure hypercholesterolemia, unspecified; I10 Essential (primary) hypertension; Z79.899 Other long term (current) drug therapy; W22.8XXA Striking against or struck by other objects, initial encounter
CPT/HCPCS: 27788; 36415; 51701; 70450; 71045; 71275; 80053; 80306; 80307; 81003; 81015; 82140; 82550; 83690; 83880; 84484; 85025; 85379; 93005; 96374; 96375; J1885; J2270; Q9967